=== PATIENT | female | born 1970 | race Caucasian/White ===

== ENCOUNTER 2016-12-13 19:58 | Emergency (ER) | payer BC ==
[2016-12-13 18:34] LABS: BASOPHILS 0.5 %; BASOPHILS ABSOLUTE 0.04 10/3/uL (0.0-0.16); EOSINOPHILS ABSOLUTE 0.17 10/3/uL (0.0-0.53); HEMATOCRIT 42.9 % (36.0-48.0); IMMATURE GRANULOCYTES 0.2 %; IMMATURE GRANULOCYTES ABSOLUTE 0.02 10/3/uL (0.0-0.11); LYMPHOCYTES 26.3 %; MEAN CORPUSCULAR VOLUME 88.1 fL (80-100); MEAN PLATELET VOLUME 10.1 fL (9.2-13.0); MONOCYTES 6.2 %; MONOCYTES ABSOLUTE 0.52 10/3/uL (0.21-1.20); NEUTROPHILS 64.8 %; PLATELET COUNT 192 10/3/uL (150-400); RBC DISTRIBUTION WIDTH 13.4 % (12.0-16.0); RED CELL COUNT 4.87 10/6/uL (4.0-5.6)
[2016-12-13 18:36] LABS: ER CBC TAT 0 Hrs 12 Mins; MANUAL DIFF NO %; MEAN CORPUSCULAR HEMOGLOB 30.8 pg (26.0-34.0); WHITE BLOOD CELLS 8.4 10/3/uL (4.5-10.5)
[2016-12-13 18:42] LABS: PARTIAL THROMBO TIME 26.9 SEC (22.5-37.2); PROTIME (NOT ORD) 12.7 SEC (12.0-14.5)
[2016-12-13 18:51] LABS: ALBUMIN 4.2 G/DL (3.5-5.0); ALKALINE PHOSPHATASE 120 U/L (45-117); BUN (BLOOD UREA NITROGEN) 8 MG/DL (6-23); CALCIUM, SERUM 9.3 MG/DL (8.5-10.4); CHLORIDE, SERUM 102 MMOL/L (96-112); CO2 (CARBON DIOXIDE) 30 MMOL/L (24-34); CREATININE 0.98 MG/DL (0.55-1.02); GFR AFRICAN AMERICAN 79 ML/MIN (>=60); GFR NON AFRICAN AMERICAN 68 ML/MIN (>=60); GLOBULIN 4.2 G/DL (2.5-4.1); GLUCOSE, SERUM 91 MG/DL (60-99); POTASSIUM, SERUM 3.7 MMOL/L (3.5-5.3); SGOT(AST) 25 U/L (5-40); SGPT(ALT) 32 U/L (5-65); SODIUM, SERUM 137 MMOL/L (135-148); TOTAL BILIRUBIN 0.7 MG/DL (0-1.2); TOTAL PROTEIN 8.4 G/DL (6.0-8.5); TROPONIN I <0.02 NG/ML (<0.05)
[~2016-12-13 19:58] MED LIST: ADVAIR INH; ARMOUR THYRO120 MG PO; ARMOUR THYRO60 MG PO; ASAB PO; BENTYL10 PO; CEFT5 PO; COZ25 PO; LEVOXYL200 MCG PO; LIOR10 PO; P10 PO; PLAVIX PO; PRIN10 PO; PROAIR HFA INH; PROTONIX PO; SINGULAIR1 PO; ZITHROMAX500 MG PO
== END 2016-12-13 21:11 | disposition home or self-care (01) ==
LOC: ER 19:58
PROVIDERS: Internal Medicine Nephrology
DX: G93.2 Benign intracranial hypertension (principal); K21.9 Gastro-esophageal reflux disease without esophagitis; D64.9 Anemia, unspecified; Z95.5 Presence of coronary angioplasty implant and graft; Z88.8 Allergy status to other drugs, medicaments and biological substances; Z87.442 Personal history of urinary calculi; Z79.899 Other long term (current) drug therapy
CPT/HCPCS: 70450; 71020; 80053; 84484; 85025; 85610; 85730; 93005; 96372; 99285; J1170; J2405